=== PATIENT | male | born 1980 | race African-American/Black ===

== ENCOUNTER 2018-10-14 19:42 | Inpatient (IN) | payer OTHER ==
[2018-10-14 20:21] VITALS: BMI 35.3
[2018-10-14] MEDS ORDERED: MELATONIN 5 MG TABLETS PO PRN (22:00)
--- NOTE | 2018-10-14 22:21 | HP ---
<Jackie Castro - Last Filed: 10/14/18 22:09> CIWA Score Nausea/Vomitin-Mild Nausea/No Vomiting Muscle Tremors: 3 Anxiety: 0-No Anxiety, at Ease Agitation: 4-Moderately Restless Paroxysmal Sweats: 3 Orientation: 2-Disoriented Date<2 days Tacttile Disturbances: 2-Mild Itch/Numbness/Burn Auditory Disturbances: 2-Mild Harshness/Frighten Visual Disturbances: 0-None Headache: 2-Mild CIWA-Ar Total Score: 19 - Admission Criteria OASAS Guidelines: Admission for Medically Managed Detox: Requires at least one of the followin. CIWA greater than 12 2. Seizures within the past 24 hours 3. Delirium tremens within the past 24 hours 4. Hallucinations within the past 24 hours 5. Acute intervention needed for co occurring medical disorder 6. Acute intervention needed for co occurring psychiatric disorder 7. Severe withdrawal that cannot be handled at a lower level of care (continued vomiting, continued diarrhea, abnormal vital signs) requiring intravenous medication and/or fluids 8. Patient presents the following: CIWA greater than 12, Acute intervention needed for co-occurring med or psych disorder Admission Criteria Met: Admission criteria met Admission ROS [facility] Chief Complaint: TRANSFER OF CARE FOR CONTINUATION OF DETOX. Allergies/Adverse Reactions: Allergies Allergy/AdvReac Type Severity Reaction Status Date / Time amoxicillin Allergy Verified 10/14/18 21:16 History of Present Illness: 38 Y.O. MALE WITH ALCOHOLISM TRANSFERRED FROM [facility] FOR ALCOHOL DETOX. CLIENT PRESENTED THERE 1 DAY AGO WITH WITHDRAWAL SX'S. ADMITTED AND STABILIZED WITH LIBRIUM. DC TODAY TO OUR [facility]. PRESENTS WITH ONGOING WITHDRAWAL SX'S. CIWA 19. HE IS KNOWN TO OTHER INPATIENT TXMENT. LAST ADMISSION 07/2017 IN [place]. REPORTS LONGEST CLEAN TIME 4 MONTHS. DENIES ANY RECENT CLEAN TIME. DENIES HX/O SI/HI/AVH, SEIZURE D/O. CURRENTLY LIVES WITH FAMILY, EMPLOYED, DUI. PMHX- PUD, GASTRIC SLEEVE, ENLARGED LIVER PSYCH- BIPOLAR W/ PSYCHOTIC TENDENCY, DEPRESSION, SPILT PERSONALITY D/O Exam Limitations: No Limitations - Ebola screening Have you traveled outside of the country in the last 21 days: No Have you had contact with anyone from an Ebola affected area: No Have you been sick,other than usual withdrawal symptoms: No Do you have a fever: No - Review of Systems Constitutional: Chills, Malaise, Night Sweats, Changes in sleep EENT: reports: Dental Problems (MISSING TOOTH/PAIN) Respiratory: reports: No Symptoms reported Cardiac: reports: No Symptoms Reported GI: reports: Nausea, Poor Fluid Intake : reports: No Symptoms Reported Musculoskeletal: reports: Back Pain (CHRONIC) Integumentary: reports: Other (C/O BILS TO BUTTOCKS AND GROIN AREA) Neuro: reports: Headache, Tremors Endocrine: reports: No Symptoms Reported Hematology: reports: No Symptoms Reported Psychiatric: reports: Orientated x3, Agitated, Anxious, Depressed Other Systems: Reviewed and Negative Patient History - Patient Medical History Hx Anemia: No Hx Asthma: No Hx Chronic Obstructive Pulmonary Disease (COPD): No Hx Cancer: No Hx Cardiac Disorders: No Hx Congestive Heart Failure: No Hx Hypertension: No Hx Hypercholesterolemia: No Hx Pacemaker: No HX Cerebrovascular Accident: No Hx Seizures: No Hx Dementia: No Hx Diabetes: No Hx Gastrointestinal Disorders: Yes (PUD) Hx Liver Disease: Yes (ENLARGED) Hx Genitourinary Disorders: No Hx Sexually Transmitted Disorders: No Hx Renal Disease (ESRD): No Hx Thyroid Disease: No Hx Human Immunodeficiency Virus (HIV): No Hx Hepatitis C: No Hx Depression: Yes Hx Suicide Attempt: No Hx Bipolar Disorder: Yes Hx Schizophrenia: No - Patient Surgical History Past Surgical History: No Hx Neurologic Surgery: No Hx Cataract Extraction: No Hx Cardiac Surgery: No Hx Lung Surgery: No Hx Breast Surgery: No Hx Breast Biopsy: No Hx Abdominal Surgery: Yes (GASTRIC SLEEVE) Hx Appendectomy: No Hx Cholecystectomy: No Hx Genitourinary Surgery: No Hx Section: No Hx Orthopedic Surgery: No Anesthesia Reaction: No - PPD History Previous Implant?: Yes Documented Results: Negative w/o proof Implanted On Prior [facility] Admission?: No PPD to be Administered?: Yes - Smoking Cessation Smoking history: Current every day smoker Have you smoked in the past 12 months: Yes Aproximately how many cigarettes per day: 20 Cigars Per Day: 0 Hx Chewing Tobacco Use: No Initiated information on smoking cessation: Yes 'Breaking Loose' booklet given: 10/14/18 - Substance & Tx. History Hx Alcohol Use: Yes Hx Substance Use: Yes Substance Use Type: Alcohol Hx Substance Use Treatment: Yes ([facility]) - Substances Abused Alcohol Route: Oral Frequency: Daily Amount used: LIQUOR- 2 PINTS, BEER- 1 SIX PACK Age of first use: 12 Date of Last Use: 10/11/18 Family Disease History - Family Disease History Family Disease History: Diabetes: Sister, Heart Disease: Mother (STROKES, DEMENTIA, HTN), Other: Father (ALCOHOLISM), Mother Admission Physical Exam [facility] - Vital Signs Vital Signs: Vital Signs - 24 hr 10/14/18 20:20 Temperature 96.7 F L Pulse Rate 85 Respiratory 18 Rate Blood Pressure 143/86 - Physical General Appearance: Yes: Appropriately Dressed, Mild Distress, Tremorous (FELT) , Irritable, Anxious HEENTM: Yes: EOMI, Normocephalic, Normal Voice, HENNA, Pharynx Normal, Scleral Ictenus R, Scleral Ictenus L Respiratory: Yes: Chest Non-Tender, Lungs Clear, Normal Breath Sounds, No Respiratory Distress, No Accessory Muscle Use Neck: Yes: No masses,lesions,Nodules, Supple Breast: Yes: Breast Exam Deferred Cardiology: Yes: Regular Rhythm, Regular Rate, S1, S2 Abdominal: Yes: Soft, Increased Bowel Sounds Genitourinary: Yes: Other (NO C/O OFFERED) Back: Yes: Normal Inspection Musculoskeletal: Yes: full range of Motion, Gait Steady Extremities: Yes: Normal Capillary Refill, Normal Range of Motion, Non-Tender, Tremors (FELT) Neurological: Yes: Alert, Motor Strength 5/5, Depressed Affect Integumentary: Yes: Dry, Warm, Other (LOOS SKIN AROUND ABD AREA) Lymphatic: Yes: Within Normal Limits - Diagnostic (1) Alcohol dependence with uncomplicated withdrawal Current Visit: Yes Status: Acute (2) PUD (peptic ulcer disease) Current Visit: Yes Status: Chronic (3) Nicotine dependence Current Visit: Yes Status: Chronic Qualifiers: Nicotine product type: cigarettes Substance use status: uncomplicated Qualified Code(s): F17.210 - Nicotine dependence, cigarettes, uncomplicated (4) History of sleeve gastrectomy Current Visit: Yes Status: Chronic (5) Substance induced mood disorder Current Visit: Yes Status: Chronic (6) Depressed affect Current Visit: Yes Status: Chronic (7) At risk for dehydration due to poor fluid intake Current Visit: Yes Status: Acute Cleared for Admission [facility] - Detox or Rehab [facility] Level of Care: Medically Managed Detox Regimen/Protocol: Librium Claeared for Rehab Admission: No [facility] Breath Alcohol Content Breath Alcohol Content: 0 Urine Drug Screen - Results Drug Screen Negative: No Urine Drug Screen Results: BZO-Benzodiazepines Inpatient Rehab Admission - Rehab Decision to Admit Inpatient rehab admission?: No <Ave Rosales - Last Filed: 10/15/18 10:15> CIWA Score - Admission Criteria OASAS Guidelines: Admission for Medically Managed Detox: Requires at least one of the followin. CIWA greater than 12 2. Seizures within the past 24 hours 3. Delirium tremens within the past 24 hours 4. Hallucinations within the past 24 hours 5. Acute intervention needed for co occurring medical disorder 6. Acute intervention needed for co occurring psychiatric disorder 7. Severe withdrawal that cannot be handled at a lower level of care (continued vomiting, continued diarrhea, abnormal vital signs) requiring intravenous medication and/or fluids 8. Admission Physical Exam [facility] - Vital Signs Vital Signs: Vital Signs - 24 hr 10/14/18 10/14/18 10/15/18 20:20 23:48 03:30 Temperature 96.7 F L 98.7 F Pulse Rate 85 101 H Respiratory 18 18 18 Rate Blood Pressure 143/86 110/75 10/15/18 10/15/18 05:50 09:20 Temperature 96.7 F L 97.5 F L Pulse Rate 57 L 73 Respiratory 20 18 Rate Blood Pressure 100/66 88/62 L
[2018-10-14] MEDS ORDERED: chlordiazePOXIDE HCL 25 MG CAPSULE PO PRN (22:31)
[2018-10-14] MEDS ORDERED: hydrOXYzine PAMOATE 50 MG CAPSULE (FP) PO PRN (22:31)
[2018-10-14] MEDS ORDERED: ACETAMINOPHEN 325 MG TABLET (FP) PO PRN (22:31)
[2018-10-14] MEDS ORDERED: MAGNESIUM HYDROX 2400MG/30ML ORAL SUSPENSION 30 ML CUP PO PRN (22:31)
[2018-10-14] MEDS ORDERED: IBUPROFEN 400 MG TABLET (FP) PO PRN (22:31)
[2018-10-14] MEDS ORDERED: MAGNESIUM CITRATE 300 ML BOTTLE PO PRN (22:31)
[2018-10-14] MEDS ORDERED: guaiFENesin/D-METHORPHAN HB 10 ML UNIT-DOSE CUPS PO PRN (22:31)
[2018-10-14] MEDS ORDERED: MAG HYDROX/AL HYDROX/SIMETH 30 ML UNIT-DOSE CUP PO PRN (22:31)
[2018-10-14] MEDS ORDERED: MENTHOL/PHENOL 1 EACH UD MM PRN (22:31)
[2018-10-14] MEDS ORDERED: P-EPHED 60MG/TRIPROLIDI 2.5MG TABLET PO PRN (22:31)
[2018-10-14] MEDS ORDERED: NICOTINE POLACRILEX 2 MG GUM BC PRN (22:31)
[2018-10-14] MEDS ORDERED: LOPERAMIDE HCL 2 MG CAPSULE PO PRN (22:31)
[2018-10-14] MEDS: chlordiazePOXIDE HCL 25 MG CAPSULE PO SCH (23:50)
[2018-10-15] MEDS: chlordiazePOXIDE HCL 25 MG CAPSULE PO SCH ×3 (05:34→17:34)
--- NOTE | 2018-10-15 09:25 | CONSULT ---
[facility] Psychiatric Consult - Data Date of interview: 10/15/18 Admission source: [facility] Identifying data: Patient is a 38 year old single male, father of five, domiciled, and currently employed. This is patient's first admission to detox at [facility]. Patient admitted to for alcohol dependence. Substance Abuse History: Smoking Cessation. Smoking history: Current every day smoker. Have you smoked in the past 12 months: Yes. Aproximately how many cigarettes per day: 20. Cigars Per Day: 0. Hx Chewing Tobacco Use: No. Initiated information on smoking cessation: Yes. 'Breaking Loose' booklet given : 10/14/18. - Substance & Tx. History. Hx Alcohol Use: Yes. Hx Substance Use : Yes. Substance Use Type: Alcohol. Hx Substance Use Treatment: Yes ([facility]-NR) . - Substances Abused. Alcohol. Route: Oral. Frequency: Daily. Amount used: LIQUOR- 2 PINTS, BEER- 1 SIX PACK. Age of first use: 12. Date of Last Use: 10/11/18 Medical History: Gastric sleeve, Peptic ulcer disease, enlarged liver Psychiatric History: Patient reports one psychiatric hospitalization at [facility] in [place] in 2017 for depression. He was discharged on prozac 50mg + Seroquel 100mg + Trazodone 150mg. Self reports diagnosis of bipolar disorder. After discharge he was provided with outpatient psychiatric care at [facility]. Mr. Rdz outpatient psychiatric care and medication mangement concluded in March of 2018. At present, patient is experiencing difficulty sleeping. Physical/Sexual Abuse/Trauma History: denies. Mental Status Exam - Mental Status Exam Alert and Oriented to: Time, Place, Person Cognitive Function: Good Patient Appearance: Well Groomed Mood: Sad Affect: Mood Congruent Patient Behavior: Cooperative Speech Pattern: Appropriate Voice Loudness: Normal Thought Process: Intact, Goal Oriented Thought Disorder: Not Present Hallucinations: Denies Suicidal Ideation: Denies Homicidal Ideation: Denies Insight/Judgement: Poor Sleep: Poorly Appetite: Fair Muscle strength/Tone: Normal Gait/Station: Normal Psychiatric Findings - Problem List ([place] 1, 2,3) (1) Insomnia Current Visit: Yes Status: Acute (2) Alcohol dependence with uncomplicated withdrawal Current Visit: Yes Status: Acute (3) Substance induced mood disorder Current Visit: Yes Status: Acute - Initial Treatment Plan Initial Treatment Plan: Psychoeducation provided. Detoxification in progress. Will restart prozac 20mg + Seroquel 50mg qhs. Benefits and side effects discussed. Verbal consent given.
[2018-10-15] MEDS ORDERED: NICOTINE 21 MG/24 HOURS TOPICAL PATCH TD SCH (10:00)
[2018-10-15] MEDS ORDERED: PRENATAL VITAMINS W/ FOLIC ACID TABLET (FP) PO SCH (10:00)
[2018-10-15] MEDS ORDERED: PANTOPRAZOLE 40 MG TABLET (FP) PO SCH (10:00)
[2018-10-15 10:56] LABS: ALBUMIN 3.2 g/dl (3.4-5.0); ALK PHOS 67 U/L (45-117); ANION GAP 7 MMOL/L (8-16); BILIRUBIN,TOTAL 0.9 mg/dL (0.2-1); BLOOD UREA NITROGEN 8 mg/dL (7-18); CALCIUM 7.9 mg/dL (8.5-10.1); CHLORIDE 103 mmol/L (98-107); CO2 30 mmol/L (21-32); CREATININE 0.9 mg/dL (0.55-1.3); GLUCOSE,RANDOM 94 mg/dL (74-106); POTASSIUM 3.9 mmol/L (3.5-5.1); SGOT/AST 7 U/L (15-37); SGPT/ALT 13 U/L (13-61); SODIUM 140 mmol/L (136-145); TOT PROT 6.1 g/dl (6.4-8.2)
[2018-10-15 11:00] LABS: HEMATOCRIT 38.9 % (35.4-49); HEMOGLOBIN 13.3 GM/dL (11.7-16.9); MCH 32.3 pg (25.7-33.7); MCHC 34.2 g/dl (32.0-35.9); MEAN CELL VOLUME 94.5 fl (80-96); PLATELET COUNT 194 K/MM3 (134-434); RBC 4.12 M/mm3 (4.00-5.60); RDW 14.7 % (11.9-15.9); WHITE BLOOD COUNT 7.7 K/mm3 (4.0-10.0)
[2018-10-15] MEDS ORDERED: FLUoxetine HCL 20 MG CAPSULE (FP) PO SCH (11:00)
--- NOTE | 2018-10-15 11:05 | PN ---
S CIWA - CIWA Score Nausea/Vomitin-Mild Nausea/No Vomiting Muscle Tremors: 4-Moderate,w/Arms Extend Anxiety: 3 Agitation: 3 Paroxysmal Sweats: 1-Minimal Palms Moist Orientation: 1-Uncertain about Date Tacttile Disturbances: 0-None Auditory Disturbances: 0-None Visual Disturbances: 0-None Headache: 1-Very Mild CIWA-Ar Total Score: 14 S Progress Note (SOAP) Subjective: tremor sweating restlessness anxiety Objective: 10/15/18 11:05 Vital Signs Temperature 97.5 F L 10/15/18 09:20 Pulse Rate 73 10/15/18 09:20 Respiratory Rate 18 10/15/18 09:20 Blood Pressure 88/62 L 10/15/18 09:20 O2 Sat by Pulse Oximetry (%) Laboratory Last Values WBC 7.7 K/mm3 (4.0-10.0) 10/15/18 07:00 RBC 4.12 M/mm3 (4.00-5.60) 10/15/18 07:00 Hgb 13.3 GM/dL (11.7-16.9) 10/15/18 07:00 Hct 38.9 % (35.4-49) 10/15/18 07:00 MCV 94.5 fl (80-96) 10/15/18 07:00 MCH 32.3 pg (25.7-33.7) 10/15/18 07:00 MCHC 34.2 g/dl (32.0-35.9) 10/15/18 07:00 RDW 14.7 % (11.9-15.9) 10/15/18 07:00 Plt Count 194 K/MM3 (134-434) 10/15/18 07:00 MPV 8.0 fl (7.5-11.1) 10/15/18 07:00 Sodium 140 mmol/L (136-145) 10/15/18 07:00 Potassium 3.9 mmol/L (3.5-5.1) 10/15/18 07:00 Chloride 103 mmol/L (98-107) 10/15/18 07:00 Carbon Dioxide 30 mmol/L (21-32) 10/15/18 07:00 Anion Gap 7 MMOL/L (8-16) L 10/15/18 07:00 BUN 8 mg/dL (7-18) 10/15/18 07:00 Creatinine 0.9 mg/dL (0.55-1.3) 10/15/18 07:00 Creat Clearance w eGFR > 60 (>60) 10/15/18 07:00 Random Glucose 94 mg/dL (74-106) 10/15/18 07:00 Calcium 7.9 mg/dL (8.5-10.1) L 10/15/18 07:00 Total Bilirubin 0.9 mg/dL (0.2-1) 10/15/18 07:00 AST 7 U/L (15-37) L 10/15/18 07:00 ALT 13 U/L (13-61) 10/15/18 07:00 Alkaline Phosphatase 67 U/L (45-117) 10/15/18 07:00 Total Protein 6.1 g/dl (6.4-8.2) L 10/15/18 07:00 Albumin 3.2 g/dl (3.4-5.0) L 10/15/18 07:00 lab noted low calcium Assessment: 10/15/18 11:06 withdrawal sx low calcium Plan: continue detox oscal calcium supplement
[2018-10-15] MEDS ORDERED: CALCIUM 250MG/VIT-D 125 UNITS 1 COMBO TABLET PO SCH (11:15)
[2018-10-15 17:39] VITALS: BP 108/65; PULSE 70; TEMP 98.5
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
--- NOTE | 2018-10-15 19:17 | DS ---
[facility] Detox Discharge Summary Admission Date: 10/14/18 Discharge Date: 10/15/18 - History Present History: Alcohol Dependence Additional Comments: Patient left AMA. Patient reports he will have his son pick him and go to [facility] to continue to his treatment. Patient advised on the risk of interrupting treatment. Patient verbalizes understanding. - Physical Exam Results Vital Signs: Vital Signs Temperature 98.5 F 10/15/18 17:38 Pulse Rate 70 10/15/18 17:38 Respiratory Rate 16 10/15/18 17:38 Blood Pressure 108/65 10/15/18 17:38 O2 Sat by Pulse Oximetry (%) - Medication Discharge Medications: Ambulatory Orders Fluoxetine HCl [Prozac -] 20 mg PO DAILY 10/14/18 Quetiapine Fumarate [Seroquel -] 100 mg PO HS 10/14/18 Trazodone HCl 150 mg PO HS 10/14/18 - Diagnosis (1) Alcohol dependence with uncomplicated withdrawal Current Visit: Yes Status: Acute (2) At risk for dehydration due to poor fluid intake Current Visit: Yes Status: Acute (3) Insomnia Current Visit: Yes Status: Acute (4) History of sleeve gastrectomy Current Visit: Yes Status: Chronic (5) Nicotine dependence Current Visit: Yes Status: Chronic Qualifiers: Nicotine product type: cigarettes Substance use status: uncomplicated Qualified Code(s): F17.210 - Nicotine dependence, cigarettes, uncomplicated (6) PUD (peptic ulcer disease) Current Visit: Yes Status: Chronic - AMA Did Patient Leave Against Medical Advice: Yes
[2018-10-15] MEDS ORDERED: THIAMINE HCL 100 MG TABLET (FP) PO SCH (22:00)
[2018-10-15] MEDS ORDERED: QUEtiapine FUMARATE 50 MG TABLET PO SCH (22:00)
[2018-10-15 22:06] LABS: URINE APPEARANCE CLEAR; URINE BILIRUBIN NEGATIVE (<2.0 mg/dL); URINE COLOR DKYELLOW; URINE GLUCOSE (UA) NEGATIVE (NEGATIVE); URINE KETONE NEGATIVE (NEGATIVE); URINE LEUK ESTERASE NEGATIVE (NEGATIVE); URINE NITRITE NEGATIVE (NEGATIVE); URINE PROTEIN NEGATIVE (NEGATIVE); URINE UROBILINOGEN 4.0 E.U/dl mg/dL (0.2-1.0)
[2018-10-15] MEDS ORDERED: chlordiazePOXIDE HCL 25 MG CAPSULE PO SCH (23:00)
--- NOTE | 2018-10-16 12:46 | EKG ---
Test Reason : Blood Pressure : / mmHG Vent. Rate : 089 BPM Atrial Rate : 089 BPM P-R Int : 148 ms QRS Dur : 096 ms QT Int : 362 ms P-R-T Axes : 062 038 041 degrees QTc Int : 440 ms NORMAL SINUS RHYTHM NORMAL ECG NO PREVIOUS ECGS AVAILABLE Confirmed by ANANT RTAN, THU ([id number] on 10/16/2018 12:46:38 PM Referred By: Confirmed By:THU [place] MD
[2018-10-16] MEDS ORDERED: chlordiazePOXIDE 5 MG CAPSULE PO SCH (23:00)
[2018-10-17] MEDS ORDERED: chlordiazePOXIDE HCL 10 MG CAPSULE PO SCH (23:00)
== END 2018-10-15 07:33 | disposition left against medical advice (07) | DRG 770 ==
LOC: YASAS 19:42 → Y3N 23:04
PROVIDERS: ADMIT Surgery; ATTEND Surgery
PROC: HZ2ZZZZ Detoxification Services for Substance Abuse Treatment (ICD-10-PCS; principal; 2018-10-14)
DX: F10.230 Alcohol dependence with withdrawal, uncomplicated (principal); F17.210 Nicotine dependence, cigarettes, uncomplicated; F19.24 Other psychoactive substance dependence with psychoactive substance-induced mood disorder; F31.9 Bipolar disorder, unspecified; E83.51 Hypocalcemia; G47.00 Insomnia, unspecified; K27.9 Peptic ulcer, site unspecified, unspecified as acute or chronic, without hemorrhage or perforation; R45.89 Other symptoms and signs involving emotional state; Z91.89 Other specified personal risk factors, not elsewhere classified; Z98.84 Bariatric surgery status
CPT/HCPCS: 36415; 80053; 81003; 85027; 86593; 93005; 93010